=== PATIENT | female | born 1970 | race Caucasian/White ===

== ENCOUNTER 2016-12-03 11:52 | Emergency (ER) | payer BC ==
[2016-12-03 11:57] VITALS: BP 140/73; PULSE 99; RESP 18; TEMP 99.3
--- NOTE | 2016-12-03 12:29 | ED ---
General Adult HPI - General Chief complaint: Extremity Injury, Lower Stated complaint: ankle pain, Time Seen by Provider: 12/03/16 12:10 Source: patient, RN notes reviewed Mode of arrival: ambulatory Limitations: no limitations - History of Present Illness Initial comments: 46-year-old female presents to the department with a chief complaint of right knee and ankle pain. Patient states is were not her horse worse: The right than she felt a pop in role in her right ankle. She now has some pain and tenderness along the lateral aspect. Patient states she actually fall the ground. Patient states about 2 weeks ago she hurt her right knee as well neck continues to cause her some pain this is also being around horse. Patient states she has been ambulatory however with discomfort. Patient states there is no head injury or any other complaints at this time. Patient denies any recent fever, chills, shortness of breath, chest pain, back pain, abdominal pain , nausea vomiting, numbness or tingling, dysuria or hematuria, constipation or diarrhea, headache or visual changes, or any other current symptoms. - Related Data Allergies Allergy/AdvReac Type Severity Reaction Status Date / Time tetracycline AdvReac Unknown Verified 12/03/16 11:57 Review of Systems ROS Statement: Those systems with pertinent positive or pertinent negative responses have been documented in the HPI. ROS Other: All systems not noted in ROS Statement are negative. Past Medical History Additional Past Medical History / Comment(s): pyloric stenosis, PPMD History of Any Multi-Drug Resistant Organisms: None Reported Past Surgical History: Tubal Ligation Additional Past Surgical History / Comment(s): pyloric stenosis Past Psychological History: Anxiety, Depression Smoking Status: Current every day smoker Past Alcohol Use History: Occasional Past Drug Use History: None Reported General Exam - General Exam Comments Initial Comments: General: The patient is awake and alert, in no distress, and does not appear acutely ill. Neck: The neck is supple, there is no tenderness . Cardiovascular: There is a regular rate and rhythm. No murmur, rub or gallop is appreciated. Respiratory: Lungs are clear to auscultation, respirations are non-labored, breath sounds are equal. No wheezes, stridor, rales, or rhonchi. Musculoskeletal: Sensation intact with 2+ pulses throughout the right lower extremity. Full range of motion of right hip right knee and right ankle. Patient does have some pain on inversion of the right ankle. With some swelling over the lateral malleolus and tenderness to touch. No tenderness throughout the forefoot. Patient's friend Somali right knee with pain to palpation to the anterior aspect diffusely. No proximal tib-fib tenderness. Neurological: CN II-XII intact, There are no obvious motor or sensory deficits. Coordination appears grossly intact. Speech is normal. Skin: Skin is warm and dry and no rashes or lesions are noted. Psychiatric: Normal mood and affect. Limitations: no limitations Course Vital Signs 12/03/16 11:53 Temperature 99.3 F Pulse Rate 99 Respiratory 18 Rate Blood Pressure 140/73 O2 Sat by Pulse 99 Oximetry Procedures - Orthopedic Splinting/Casting Injury #1 Side: right Lower Extremity Injury Location: knee, ankle Lower Extremity Immobilizer: Emile wrap Medical Decision Making - Medical Decision Making 46 shows male presents emergency Department chief complaint of right knee and ankle pain. At this time patient's x-rays reviewed and show no acute fracture. This time we discussed right ankle sprain as well as right knee sprain. We discussed ice Motrin Tylenol. Discussed follow-up and all the patient's questions. She stated that she understood and she is very plan. questionss answered. She will be discharged. Disposition Clinical Impression: Right knee sprain, Right ankle sprain Disposition: HOME SELF-CARE Condition: Stable Instructions: Ankle Sprain (ED), Knee Sprain (ED) Additional Instructions: Please use medication as discussed. Please follow up with family doctor if symptoms have not improved over the next two days. Please return to the emergency room if your symptoms increase or worsen or for any other concerns. Referrals: Yaniv Coronado MD [Primary Care Provider] - 1-2 days Time of Disposition: 12:36
--- NOTE | 2016-12-03 12:31 | XR ---
EXAMINATION TYPE: XR ankle complete RT DATE OF EXAM: 12/03/2016 CLINICAL HISTORY: Twisting injury to the right knee and ankle after being ran over by a horse. TECHNIQUE: Frontal, lateral and oblique images of the right ankle are obtained. COMPARISON: None. FINDINGS: There is no acute fracture/dislocation evident in the right ankle. The ankle mortise appe ars within normal limits. Soft tissue swelling is seen about the ankle, most prominent laterally. Os trigonum is incidentally noted. Small infracalcaneal/Achilles heel spurs is seen. IMPRESSION: Generalized soft tissue swelling around the ankle without acute fracture or dislocation.
--- NOTE | 2016-12-03 12:32 | XR ---
EXAMINATION TYPE: XR knee complete RT DATE OF EXAM: 12/03/2016 CLINICAL HISTORY: Twisting injury after being run over by a horse. TECHNIQUE: Three views of the right knee are obtained. COMPARISON: None FINDINGS: There is no acute fracture/dislocation evident in right knee. The tri-compartment joint s paces appear within normal limits. The overlying soft tissue appears unremarkable. Incidental note i s made of a fabella. IMPRESSION: There is no acute fracture or dislocation in the right knee.
== END 2016-12-03 12:46 | disposition home or self-care (01) ==
LOC: EC 11:52
DX: S83.91XA Sprain of unspecified site of right knee, initial encounter (principal); S93.401A Sprain of unspecified ligament of right ankle, initial encounter; F17.200 Nicotine dependence, unspecified, uncomplicated; Z88.1 Allergy status to other antibiotic agents; W18.39XA Other fall on same level, initial encounter; X50.1XXA Overexertion from prolonged static or awkward postures, initial encounter
CPT/HCPCS: 99283

== ENCOUNTER → 2022-03-07 | Outpatient (CLI) | payer OTHER ==
--- NOTE | 2022-03-07 09:33 | CTL ---
EXAMINATION TYPE: CT Low Dose Lung DATE OF EXAM ORDERED: 03/07/2022 HISTORY: Long-term tobacco use. Lung cancer screening CT DLP: 102.[address] CTDI: 2.90 mGy Automated exposure control for dose reduction was used. SCREENING VISIT: First COMPARISON: Baseline TECHNIQUE: Low dose computed tomography scan was performed through the chest at 1 mm thick sections a nd reconstructed images in multiple planes at 1 mm and [address] DIAGNOSTIC QUALITY: Satisfactory FINDINGS: LUNG NODULES: Present, detailed below: There is 4 x 3 mm right anterior mid lung nodule axial image 128 appears to be localized to the fissu re on sagittal images favoring benign lymph node. No suspicious greater than 6 mm pulmonary nodules. LUNGS: COPD: Severity: None Fibrosis: Severity: None Lymph nodes: None Other findings: None RIGHT PLEURAL SPACE: Effusion: None Calcification: None Thickening: None Pneumothorax: None LEFT PLEURAL SPACE: Effusion: None Calcification: None Thickening: None Pneumothorax: None HEART: Heart Size: Normal Coronary Calcification: None Pericardial Effusion: None OTHER FINDINGS: Upper abdomen: None Bony thorax: Mild to moderate multilevel spurring of the spine Supraclavicular region: None Other: None IMPRESSION: No significant nodules. CT LUNG RAD AND CT CHEST RECOMMENDATION: Lung-Rad 2 Benign Appearance or Behavior: Continue annual sc reening with LDCT in 12 months. S Modifier (other clinically significant findings): None
--- NOTE | 2022-03-07 09:55 | CT ---
EXAMINATION TYPE: CT knee RT wo con DATE OF EXAM: 03/07/2022 COMPARISON: MRI right knee 2017. HISTORY: Pain Rt Knee CT DLP: 526.3 mGycm Automated exposure control for dose reduction was used. FINDINGS: Moderate narrowing and mild to moderate spurring medial tibial femoral and patellofemoral compartment s. Mild narrowing with mild/moderate spurring lateral tibial femoral compartment. No acute displaced fracture. Moderate to large-size suprapatellar joint effusion remains present similar to 2017 MRI. No popliteal cyst. Muscle bulk maintained. Patellar tendon appears intact. Hoffa's fat pad preserved. IMPRESSION: As above.
== END | disposition home or self-care (01) ==
LOC: RADCTMAIN 08:33
PROVIDERS: ATTEND Family Medicine
DX: Z12.2 Encounter for screening for malignant neoplasm of respiratory organs (principal); S82.201A Unspecified fracture of shaft of right tibia, initial encounter for closed fracture; M25.461 Effusion, right knee; M25.561 Pain in right knee; Z87.891 Personal history of nicotine dependence
CPT/HCPCS: 71271